=== PATIENT | male | born 1955 | race Caucasian/White ===

== ENCOUNTER 2018-03-08 13:27 | Inpatient (IN) | payer OTHER ==
[~2018-03-08] VITALS: Ht 167.6 cm; Wt 79.0 kg
[2018-03-08 16:00] VITALS: BP 133/63; PULSE 36; TEMP 36.6; O2SAT 96; Ht 167.6 cm; Wt 79.0 kg
[2018-03-08] MEDS ORDERED: ASPIRIN 81 MG ECTAB PO STA (17:04)
[2018-03-08 19:43] VITALS: BP 122/68; PULSE 65; TEMP 37.1; O2SAT 93
[2018-03-08 23:21] VITALS: BP 136/70; PULSE 49; TEMP 36.5; O2SAT 97
[2018-03-09] VITALS (7 sets, daily range): BP systolic 128–156; BP diastolic 67–85; PULSE 42–74; TEMP 36.4–37; O2SAT 95–100
[2018-03-09] MEDS ORDERED: NURSING VERBAL MED ORDER ONE (03:00)
[2018-03-09] MEDS ORDERED: GLUCOSE 10 TABS/TUBE PO PRN (03:00)
[2018-03-09] MEDS ORDERED: CARBOHYDRATES FOR HYPOGLYCEMIA PO PRN (03:00)
[2018-03-09] MEDS ORDERED: GLUCAGON FOR INJ 1 MG VIAL IM PRN (03:00)
[2018-03-09] MEDS ORDERED: GLUCOSE 40% GEL 15 GM TUBE PO PRN (03:00)
[2018-03-09] MEDS ORDERED: DEXTROSE 50% 50 ML SYR IV PRN (03:00)
[2018-03-09] MEDS ORDERED: BUPIVACAINE 0.25% 30 ML VIAL ONE (07:17)
[2018-03-09] MEDS ORDERED: BACITRACIN 50000 UNIT VIAL ONE (07:17)
[2018-03-09] MEDS ORDERED: LIDOCAINE HCL 1% 20 ML VIAL ONE (07:17)
[2018-03-09] MEDS ORDERED: MIDAZOLAM HCL 5 MG/ML 1 ML VIAL ONE (08:04)
[2018-03-09] MEDS ORDERED: FENTANYL CITRATE INJ 50 MCG/1 ML 2 ML VIAL ONE (08:05)
[2018-03-09] MEDS ORDERED: CEFAZOLIN SOD 1 GM VIAL ONE (08:05)
--- NOTE | 2018-03-09 08:12 | History and Physical ---
History & Physical Date Mar 09, 2018. Chief Complaint near syncope History of Present Illness The patient is a 62 year old male with complaints of near syncope, lightheadedness and dizziness Past Medical/Surgical History Medical Problems: (1) AV heart block Additional History Hepatic Disease: No Endocrine Disorder: No Kidney Disease: No Hypertension: No Heart Disease: No Bleeding Tendencies: No Infectious Diseases: No Allergies Coded Allergies: No Known Allergies (Unverified , 03/08/18) Physical Examination Skin: warm/dry, no rash Head: normocephalic, atraumatic Neck: supple Respiratory/Chest: lungs clear, normal breath sounds Cardiovascular: regular rate, rhythm, no edema, no murmur Abdomen / GI: normal bowel sounds, non tender Back: normal inspection Extremities: normal inspection Neurologic/Psych: alert, oriented x 3 Diagnosis 1. Intermittent CHB 2. LBBB 3. Near syncope 4. DM ASA Classification: ASA Class II Plan of Treatment for dual chamber pacemaker; rediscussed the procedure and consent signed
--- NOTE | 2018-03-09 08:13 | Pre Sedation Assessment ---
Pre Sedation Assessment General Date of Sedation: Mar 09, 2018. Vital Signs Past 12 Hours Date Time Temp Pulse Resp B/P (MAP) Pulse Ox O2 Delivery O2 Flow Rate FiO2 03/09/18 06:42 36.9 53 16 128/74 (92) 96 Room Air 03/09/18 02:05 36.5 42 16 131/67 (88) 100 Room Air 03/08/18 23:21 36.5 49 16 136/70 (92) 97 Room Air Review Cardiovascular: regular rate, rhythm, no edema, no murmur, + bradycardia Lungs: lungs clear Pre-Sedation Airway Assessment Smoking Status: Former Smoker Hx of Sleep Apnea: No Hx of difficult intubation: No Short Thick Neck: No Thyro-mental Distance: < or =3 Finger Breadths Oral Cavity: WNL Mallampati Classification: Class II ASA Classification: Class II NPO Status Date of Last Intake of Fluids: Mar 08, 2018 Time of Last Intake of Fluids: 1999 Date of Last Intake of Solids: Mar 08, 2018 Time of Last Intake of Solids: 1999 Procedure Planning Contraindications for Sedation: None Current Medications Reviewed: Yes Notes The planned sedation has been discussed with the patient. Informed Consent was obtained. I have identified the patient, determined the appropriateness of sedation and have assessed the patient immediately prior to the procedure. All medicine(s) and interventions are by my order.
[2018-03-09] MEDS ORDERED: LISINOPRIL 20 MG TAB PO SCH (09:00)
--- NOTE | 2018-03-09 09:34 | Post Sedation Assessment ---
Post Sedation Assessment General Date of Sedation Mar 09, 2018. Vital Signs: Vital Signs Past 12 Hours Date Time Temp Pulse Resp B/P (MAP) Pulse Ox O2 Delivery O2 Flow Rate FiO2 03/09/18 09:27 66 16 122/73 (89) 96 Room Air 03/09/18 06:42 36.9 53 16 128/74 (92) 96 Room Air 03/09/18 02:05 36.5 42 16 131/67 (88) 100 Room Air 03/08/18 23:21 36.5 49 16 136/70 (92) 97 Room Air Post Procedure Recovery Score Activity: (2) Moves 4 extremities * Respiration: (2) Deep breath/cough Circulation: (2) +/-20% PreAnes Value Consciousness: (2) Fully Awake Oxygen Saturation: (2) > 92% On Room Air Post Anesthesia Score: 10 Discharge Sedation Level of Care: Fast Track Phase II Post Sedation Plan On clinical assessment, the patient appears to have tolerated the sedation without complications. Patient is recovering as anticipated. Patient will continue to be monitored by nursing and may be discharged when sedation discharge criteria are met per below protocol. Upon Completions of procedure and additional 15 minutes continue every 5 minute vital signs and the P.A.R. score; then discharge to a Phase I or Fast Track to Phase II per the following guidelines: * Discharge Patient to appropriate Phase II area if PAR is 8 or greater or return to pre- procedure baseline. The post - procedure orders will be as directed. * If PAR score is less than 8 or not return to pre-procedure baseline then patient will follow Phase I monitoring till PAR is reached for Phase II. The Phase I may be done in procedure room or may call to secure a Phase I area. * If naloxone or flumazenil are used for reversal, hold in Phase I for an additional 60 -120 minutes before discharge to Phase II. Please call the Sedation Physician to re-evaluate and complete post-note for discharge to Phase II area. Do NOT discharge from procedure sedation or Phase 1 until post- sedation evaluation note is complete by procedure /sedation MD Sedation Discharge Instructions to be given to the patient at discharge to home.
--- NOTE | 2018-03-09 09:35 | [facility] Post Operative Brief Note ---
Immediate Operative Summary Operative Date Mar 09, 2018. Pre-Operative Diagnosis intemittent chb Post-Operative Diagnosis same Procedure(s) Performed dual chamber rate responsive permanent pacemaker under fluroscopic guidance Surgeon johanna hayes [employer] Programmer Surgeon(s) none Estimated Blood Loss <20cc Findings See Below see official report Fluids (cc crystalloids) 200cc Specimens none Drains None Anesthesia Type IV Sedat Cons RN Only Complication(s) none Disposition Accompanied Pt To Recover: yes Disposition: PCU Overlapping Procedure I was present for: the critical portions of procedure. I was immediately available: during the entire case Back up surgeon: was not required during procedure
--- NOTE | 2018-03-09 09:42 | Discharge Instructions ---
Discharge Instructions Date of Service Mar 09, 2018. Admission Reason for Admission: Pacemaker Discharge Discharge Diagnosis / Problem: intermittent chb Discharge Goals Goal(s): Improve function Activity Recommendations Activity Limitations: as noted below Lifting Limitations: no more than 10 pounds (do not lift the left elbow over the left shoulder for 1 month or lift more than 10 pounds with the left arm for 2 weeks) Shower/Bathe: tomorrow Driving or Machine Use: resume 3 days after discharge . Instructions / Follow-Up Instructions / Follow-Up ACTIVITY RECOMMENDATIONS: * Do not raise affected arm over head for 4 weeks. SPECIAL CARE INSTRUCTIONS: * If bleeding occurs, apply direct pressure to area for 5 minutes. * Call your doctor if you have severe pain, fever, drainage or bleeding at site. * Keep dry for 24 hours. * Keep any scheduled doctor's appointment. * Implant Card - hand held device with website information given. SKIN IRRITATION: * You may experience some redness and/or swelling in the area where radiation was administered. If any skin irritation occurs, please contact your family physician. FOLLOW UP VISIT: Keep any scheduled doctor appointments. Current Hospital Diet Patient's current hospital diet: AHA Diet (Heart Healthy) Discharge Diet Recommended Diet: AHA Diet (Heart Healthy), Low Sodium Diet (2gm Na) Procedures Procedures Performed: dual chamber rate responsive permanent pacemaker under fluroscopic guidance Pending Studies Studies pending at discharge: no Medical Emergencies . Who to Call and When: Medical Emergencies: If at any time you feel your situation is an emergency, please call 911 immediately. . Non-Emergent Contact Non-Emergency issues call your: Perinatal Coordinator . . "Provider Documentation" section prepared by Domitila Adamson. .
[2018-03-09] MEDS ORDERED: OXYCODONE/ACETAMINOPHEN 5-325 TAB PO PRN (09:45)
--- NOTE | 2018-03-09 09:47 | Discharge Summary ---
Discharge Summary Date of Service Mar 09, 2018. Discharge Summary Admission Date: Mar 08, 2018 at 15:32 Discharge Date: Mar 10, 2018 Discharge Disposition: Home Principal Diagnosis: Intermittent complete heart block s/p dual chamber ppm 03/09/2018 Secondary Diagnoses/Problems: LBBB cardiomyopathy newly diagnosed 03/2018 EF 45% global DM Procedures: dual chamber rate responsive permanent pacemaker under fluoroscopic guidance Medication Reconciliation New Medications: Lisinopril (Zestril) 10 Mg Tab 10 MG PO QAM for 30 Days, #30 TAB Metoprolol Succinate (Metoprolol Succinate ER) 25 Mg Tabcr 25 MG PO QAM for 30 Days Continued Medications: Albuterol Hfa (Ventolin Hfa) 200 Puffs/52834 Mcg Aers 2 PUFFS INH Q4H PRN for SOB/W Atorvastatin (Lipitor) 20 Mg Tab 20 MG PO DAILY Benzonatate (Tessalon Perles) 100 Mg Cap 100-200 MG PO TID PRN for Cough Loratadine (Claritin) 10 Mg Tab 10 MG PO DAILY Discontinued Medications: Lisinopril (Zestril) 20 Mg Tab 20 MG PO DAILY Admission Information Physical Exam (per Admitting): aaox3, NAD Supple, No JVD Bradycardic, no murmur CTA b/l No w/r/r soft NT/ND No edema b/l LE no focal deficits skin intact Hospital Course Pt transferred from [facility] due to intermittent CHB. He underwent a dual chamber pacemaker without any complications. Started on ACEI due to echocardiogram in [facility] showing EF 45%. Monitored overnight and discharged home. Total time spent on discharge = >30 minutes This includes examination of the patient, discharge planning, medication reconciliation, and communication with other providers. Discharge Instructions ACTIVITY RECOMMENDATIONS: * Do not raise affected arm over head for 4 weeks. SPECIAL CARE INSTRUCTIONS: * If bleeding occurs, apply direct pressure to area for 5 minutes. * Call your doctor if you have severe pain, fever, drainage or bleeding at site. * Keep dry for 24 hours. * Keep any scheduled doctor's appointment. * Implant Card - hand held device with website information given. SKIN IRRITATION: * You may experience some redness and/or swelling in the area where radiation was administered. If any skin irritation occurs, please contact your family physician. FOLLOW UP VISIT: Keep any scheduled doctor appointments.
[2018-03-09] MEDS ORDERED: LISINOPRIL 2.5 MG TAB PO SCH (10:30)
[2018-03-09] MEDS: ATORVASTATIN 20 MG TAB PO SCH (10:41)
[2018-03-09] MEDS: LORATADINE 10 MG TAB PO SCH (10:41)
[2018-03-09] MEDS ORDERED: VNTHFA/IN INH (11:25)
[2018-03-09] MEDS ORDERED: ATOR-22 PO (11:25)
[2018-03-09] MEDS ORDERED: CLR10 PO (11:25)
[2018-03-09] MEDS ORDERED: BENZ100C84 PO (11:25)
[2018-03-09] MEDS ORDERED: LISI-725 PO (11:25)
--- NOTE | 2018-03-09 12:11 | OPERATIVE REPORT ---
DATE OF OPERATION: 03/09/2018 PREOPERATIVE DIAGNOSIS: Intermittent complete heart block. POSTOPERATIVE DIAGNOSIS: Intermittent complete heart block. PROCEDURE: Dual chamber rate responsive permanent pacemaker under fluoroscopic guidance. SURGEON: Domitila Adamson DO ASSISTANTS: None. ANESTHESIA: Monitored conscious sedation administered under my supervision by Heriberto Bowers. Start time 8:33; end time 9:30. Total of 5 mg Versed, 100 mcg of fentanyl. IV FLUIDS: 200 mL. BLOOD LOSS: Less than 20 mL. COMPLICATIONS: None. CONDITION: Stable. URINE OUTPUT: Not applicable. SPECIMENS: None. FINDINGS: See below. DRAINS: None. INDICATIONS: This is a 62-year-old gentleman with past medical history for diabetes, otherwise pretty unremarkable, but over the last 2 weeks, he has been having lightheadedness, dizziness with near syncope, found to be bradycardic, came to the Emergency Room in [facility] where he was found to be 2:1 advanced heart block in the 30s and was recommended a pacemaker. Unfortunately, we were unable to do it in [place]. So he was transferred to [facility] where he underwent a pacemaker. Also, an echocardiogram was done in [place] which revealed that he has a diffuse cardiomyopathy with ejection fraction of 45%, unclear etiology. He also has a left bundle branch block. CONSENT: Consent was obtained prior to the patient going into the electrophysiology lab. The patient was informed of the risks, benefits, and alternatives of the procedure. Risks include but not limited to sudden cardiac , cardiac arrhythmias, cerebrovascular accident, myocardial infarction, injury to the blood vessels, chamber of the heart, lungs, bleeding, and infection. The patient understood these risks and agreed to the procedure as planned. Informed consent was obtained. DESCRIPTION OF THE PROCEDURE: The patient was brought into electrophysiology lab in a fasting state. He was connected to continuous secured entrance monitor. A timeout was performed to ensure the patient's identity and procedure correctly. The patient was prepped and draped over the left infraclavicular space in normal surgical standard fashion. Moderate conscious sedation was given throughout the procedure for patient's comfort level. Antoine precautions were maintained throughout the procedure. A 20 mL of 1% lidocaine, bupivacaine mixture were given in left deltopectoral groove. An incision was made in the left deltopectoral groove. Blunt dissection was performed down to identify the cephalic vein. The cephalic vein was identified and isolated using 0 silk ties. The vein was nicked with an 11 blade and a guidewire was inserted without any resistance. An 8-Iranian sheath was inserted over the guidewire without any resistance. Dilator was removed and a second guidewire was inserted through the 8-Iranian sheath to allow for retained venous access. The sheath was removed, flushed, dilator reinserted over, and then was reinserted over one of the guidewires. The guidewire and dilator removed. The right ventricular lead was then advanced into right ventricle and positioned into right ventricular apex under fluoroscopic guidance. There was adequate pacing and sensing thresholds and no diaphragmatic stimulation with high output pacing. The 8-Iranian sheath was peeled away and lead was fixated to pectoralis muscle using 0 silk suture. A second 8-Iranian sheath was inserted over the retained guidewire without any resistance. The guidewire and dilator were removed. The right atrial lead was then advanced into right atrium and positioned into right atrial appendage under fluoroscopic guidance. There was adequate pacing and sensing thresholds and no diaphragmatic stimulation with high output pacing. The 8-Iranian sheath was peeled away and lead was fixated to pectoralis muscle using 0 silk suture. Additional 10 mL of 1% lidocaine bupivacaine mixture were given in the pectoralis fascia. Then using blunt dissection over the pectoralis muscle within the fascia, a pacemaker pocket was created. The pocket was flushed with copious amounts of bacitracin saline wash and inspected for hemostasis. The pulse generator was then attached to the leads making sure that the pins were in appropriate position, passed set screws and set screws were all tightened. The pulse generator was then placed in the pocket, making sure that the leads were lying flat beneath the device. A stay stitch using 0 silk suture was used to secure the device to the pectoralis muscle. The incision was closed in 3-layer fashion with 2-0 Vicryl interrupted suture, followed by a 3-0 Vicryl interrupted suture, followed by 4-0 Monocryl running stitch and Dermabond was applied. EQUIPMENT: 1. Generator is a [employer] [place] XT DR LITTLE Webber [id number], serial [id number]. 2. Right atrial lead Medtronic 5076-52 cm, serial #[id number]. 3. Right ventricular lead, Medtronic 5076-58 cm, serial #[id number]. INTRAOPERATIVE TESTIN. Right atrial lead: P-wave is 3.7 millivolts, impedance 697 ohms, threshold 0.3 volts at 0.4 milliamps. 2. Right ventricular lead: R-wave is 7.8 millivolts, impedance 682 ohms, threshold 0.2 volts at 0.2 milliamps. FINAL MEASUREMENTS THROUGH THE DEVICE: 1. Right atrial lead: P-wave is 3.8 millivolts, impedance 665 ohms, threshold 0.5 volts at 0.4 milliseconds. 2. Right ventricular lead: R-wave is 10.5 millivolts, impedance 532 ohms, threshold 0.5 volts at 0.4 milliseconds. FINAL PARAMETERS: MVP-R 60/140. Right atrial amplitude 3.5 volts, pulse width 0.4 milliseconds, sensitivity 0.3 millivolts. Right ventricular amplitude 5 volts, pulse width 1 milliseconds, and sensitivity 0.9 millivolts. IMPRESSION: Successful implantation of dual chamber rate responsive permanent pacemaker under fluoroscopic guidance secondary to intermittent complete heart block. PLAN: Monitor patient overnight, 12-lead ECG, chest x-ray. He is not allowed to lift the left elbow or left shoulder for 1 month. He cannot lift more than 10 pounds with the left arm for 2 weeks. He can shower in 2 days, let water run over incision, do not scrub it. I will start him on lisinopril due to his newly found cardiomyopathy. He will need an ischemic workup as an outpatient and we will see if we can give beta eveline as an outpatient; given that his blood pressure is on the low side, will start with lisinopril. He will follow up in my [place] office for device and wound check in 1 week's time. I attest to the content of the Intraoperative Record and any orders documented therein. Any exception s are noted below.
[2018-03-09] MEDS: LISINOPRIL 10 MG TAB PO SCH (12:20)
[2018-03-09] MEDS: ACETAMINOPHEN 325 MG TAB PO PRN (15:27)
[2018-03-10 03:42] VITALS: BP 150/80; PULSE 61; TEMP 36.7; O2SAT 96
[2018-03-10 07:10] VITALS: BP 147/81; PULSE 62; TEMP 36.8; O2SAT 99
--- NOTE | 2018-03-10 07:17 | DIAGNOSTIC IMAGING REPORT ---
TWO VIEW CHEST CLINICAL HISTORY: Cardiac pacemaker implantation. FINDINGS: PA and lateral chest radiographs are obtained. No prior studies are available for comparison at the time of dictation. A 2-lead cardiac pacemaker has been placed. Leads project over the right atrial appendage and the right ventricle. The heart is mildly enlarged and there is atherosclerotic calcification noted in the thoracic aorta. There is no airspace consolidation or pleural effusion. Nonspecific interstitial thickening is likely chronic. There is no pneumothorax. The skeletal structures appear osteopenic. Degenerative change is noted throughout the thoracic spine. IMPRESSION: 1. A 2-lead cardiac pacemaker has been placed as detailed above. No pneumothorax is seen post procedure. 2. Cardiomegaly without radiographic evidence of congestive failure. 3. No airspace consolidation or pleural effusion is identified. Electronically signed by: Gelacio Keane M.D. 03/10/2018 7:16 AM Dictated Date/Time: 03/10/2018 7:15 AM
[2018-03-10] MEDS: LISINOPRIL 10 MG TAB PO SCH (07:26)
[2018-03-10] MEDS: LORATADINE 10 MG TAB PO SCH (07:26)
[2018-03-10] MEDS: ATORVASTATIN 20 MG TAB PO SCH (07:26)
[2018-03-10] MEDS ORDERED: LSN10 PO (08:37)
[2018-03-10] MEDS ORDERED: TPRSR25 PO (08:37)
--- NOTE | 2018-03-10 08:45 | Cardiology Follow-Up ---
Subjective Subjective Date of Service: Mar 10, 2018. Pt evaluation today including: conversation w/ patient, physical exam, lab review Review of Systems Constitutional: No fever Respiratory: No shortness of breath, No dyspnea on exertion Cardiac: No chest pain, No edema Abdomen: No nausea Endo: No fatigue Objective Vital Signs Last Vital Signs Documentation Date Time Temp Pulse Resp B/P (MAP) Pulse Ox O2 Delivery O2 Flow Rate FiO2 03/10/18 08:00 Room Air 03/10/18 07:10 36.8 62 17 147/81 (103) 99 Physical Exam: General Appearance: WD/WN, no apparent distress Eyes: bilateral eyes PERRL, bilateral eyes EOMI Neck: supple Respiratory/Chest: lungs clear, normal breath sounds Cardiovascular: regular rate, rhythm, no edema, no murmur Abdomen: soft Neurologic/Psychiatric: alert, oriented x 3 Skin: warm/dry, no rash (left pectoral region intact no hematoma no ecchymosis) Assessment and Plan Impression: 1. Intermittent CHB s/p dual chamber ppm 03/09/2018 2. LBBB 3. Cardiomyopathy newly diagnosed unclear etiology EF 45% by echo 03/2018 4. DM Plan: -Ok for dishcarge home -Toprol 25mg daily -Decrease lisinopril to 10mg daily -Shower tomorrow -Do not lift the left elbow over the left shoulder for 1 month -F/u next week as scheduled Discharge planning: home Medications: Medications Administered Medications (Trade) Dose Ordered Sig/Yolie Route Start Time Stop Time Status Last Admin Dose Admin Acetaminophen (Tylenol Tab) 650 mg Q4H PRN PO 03/08/18 16:30 04/07/18 16:29 03/09/18 15:27 650 MG Loratadine (Claritin Tab) 10 mg QAM PO 03/09/18 09:00 04/08/18 08:59 03/10/18 07:26 10 MG Atorvastatin Calcium (Lipitor Tab) 20 mg QAM PO 03/09/18 09:00 04/08/18 08:59 03/10/18 07:26 20 MG Aspirin (Ecotrin Tab) 81 mg NOW STAT PO 03/08/18 17:04 03/08/18 17:05 DC 03/08/18 17:29 81 MG Midazolam HCl (Versed Inj) 5 mg STK-MED ONCE .ROUTE 03/09/18 08:04 03/09/18 08:05 DC 03/09/18 08:04 5 MG Fentanyl Citrate (Fentanyl Inj) 100 mcg STK-MED ONCE .ROUTE 03/09/18 08:05 03/09/18 08:06 DC 03/09/18 08:05 100 MCG Cefazolin Sodium (Ancef Inj) 2,000 mg STK-MED ONCE .ROUTE 03/09/18 08:05 03/09/18 08:06 DC 03/09/18 08:05 2,000 MG Metoprolol Succinate (Toprol Xl Tab) 25 mg QAM PO 03/10/18 10:45 04/09/18 10:44 03/10/18 07:27 25 MG Lisinopril (Zestril Tab) 10 mg QAM PO 03/10/18 09:00 04/09/18 08:59 03/10/18 07:26 10 MG Lab Results: ECG: SR LBBB Telemetry: 7 beats NSVT yesterday SR occasioal [facility] [employer] CXR: No PTX leads in place Pacemaker interrogation today normal function and stable lead testing from implant Last 24 Hours Test 03/09/18 11:45 Bedside Glucose 221 mg/dl
[2018-03-10 09:23] VITALS: BP 147/81; PULSE 62; TEMP 36.8; O2SAT 99
[2018-03-10] MEDS: ACETAMINOPHEN 325 MG TAB PO PRN (09:57)
[2018-03-10] MEDS ORDERED: METOPROLOL SUCC 25MG EXT REL TAB PO SCH (10:45)
== END 2018-03-10 11:04 | disposition home or self-care (01) | DRG 243 ==
LOC: C.2T 15:32
PROVIDERS: ADMIT Internal Medicine; ATTEND Internal Medicine
PROC: 0JH606Z Insertion of Pacemaker, Dual Chamber into Chest Subcutaneous Tissue and Fascia, Open Approach (ICD-10-PCS; principal; 2018-03-09 07:30)
PROC: 02H63JZ Insertion of Pacemaker Lead into Right Atrium, Percutaneous Approach (ICD-10-PCS; principal; 2018-03-09 07:30)
PROC: 02HK3JZ Insertion of Pacemaker Lead into Right Ventricle, Percutaneous Approach (ICD-10-PCS; principal; 2018-03-09 07:30)
DX: I44.2 Atrioventricular block, complete (principal); I42.9 Cardiomyopathy, unspecified; E11.9 Type 2 diabetes mellitus without complications; Z79.899 Other long term (current) drug therapy